=== PATIENT | male | born 1995 | race Native Hawaiian/Other Pacific Islander ===

== ENCOUNTER 2017-07-25 21:53 | Emergency (ER) | payer OTHER ==
[~2017-07-25] VITALS: Ht 188 cm; Wt 64.9 kg
[2017-07-25 23:40] VITALS: BP 114/67; TEMP 98.3
== END 2017-07-25 23:40 | disposition home or self-care (01) ==
LOC: ED 21:53
PROC: 0RSJXZZ Reposition Right Shoulder Joint, External Approach (ICD-10-PCS; principal; 2017-07-25)
DX: S43.004A Unspecified dislocation of right shoulder joint, initial encounter (principal)
CPT/HCPCS: 96374; 96375; 96376; 99284; J1885; J2060; J2250

== ENCOUNTER 2017-09-27 10:42 | Emergency (ER) | payer OTHER ==
[~2017-09-27] VITALS: Ht 188 cm; Wt 65.3 kg
[2017-09-27 11:30] VITALS: BP 145/71; TEMP 98.1
== END 2017-09-27 11:33 | disposition home or self-care (01) ==
LOC: ED 10:42
DX: Z04.8 Encounter for examination and observation for other specified reasons (principal)
CPT/HCPCS: 99281